=== PATIENT | female | born 1985 | race Caucasian/White ===

== ENCOUNTER 2019-05-07 02:20 | Outpatient (CLI) | payer BC, SELFPAY ==
[2019-05-07 12:36] LABS: TSH (W/Ref FT4) 0.39 uIU/mL (0.36-3.74)
== END 2019-05-07 02:40 ==
PROVIDERS: PCP Nurse Practitioner Adult Health; Visit Provider Nurse Practitioner Adult Health
DX: E03.9 Hypothyroidism, unspecified (principal)
CPT/HCPCS: 36415; 84443

== ENCOUNTER 2019-11-18 11:06 | Outpatient (REF) | payer BC, SELFPAY ==
--- NOTE | 2019-11-18 10:30 | PAPFT_PTH ---
PATIENT: Светлана Flores LOC: [facility] U#:[id number] AGE/SX: 34/F ROOM: RE11/18/[address]: CHRISTY Marquis : 1985 BED: DIS: 11/18/2019 SPEC #: [id number] RECD: 11/18/19 17:08 STATUS: KATERINE RETeodoro #: [id number] PEDRO: 11/18/19 10:[address]: Leticia Phelps [facility] Cytology RECD BY: Marie Monroy ENTERED: 11/18/19 17:08 SP TYPE: PAPFT OTHR DR: Mackenzie Clarke APRN Tissues: 1 - CX/ENDOCX FOR PAP SMEARS Procedures: PAP THIN PREP/[facility] Screening HPV DNA PROBE Comments: [id number]
[2019-11-19 13:03] LABS: GC Result Negative (Negative)
[2019-11-19 14:36] LABS: Chlamydia Result Positive (Negative)
== END 2019-11-18 11:26 ==
LOC: LBN 11:06
PROVIDERS: PCP Nurse Practitioner Adult Health; Visit Provider Nurse Practitioner Family
DX: R30.0 Dysuria (principal); Z11.3 Encounter for screening for infections with a predominantly sexual mode of transmission; Z12.4 Encounter for screening for malignant neoplasm of cervix; Z11.51 Encounter for screening for human papillomavirus (HPV); R87.615 Unsatisfactory cytologic smear of cervix
CPT/HCPCS: 87491; 87591; 88142; 87086; 87624

== ENCOUNTER 2019-12-19 02:40 | Outpatient (CLI) | payer BC, SELFPAY ==
[2019-12-20 09:50] LABS: HIV-1/2 Ag & Ab Screen Negative (Negative)
[2019-12-21 11:34] LABS: Syphilis Total Ab w/Reflex Nonreactive (Nonreactive)
== END 2019-12-19 03:00 ==
PROVIDERS: PCP Nurse Practitioner Adult Health; Visit Provider Nurse Practitioner Family
DX: Z11.3 Encounter for screening for infections with a predominantly sexual mode of transmission (principal); Z11.4 Encounter for screening for human immunodeficiency virus [HIV]
CPT/HCPCS: 36415; 87389; 86780

== ENCOUNTER 2019-12-24 18:19 | Outpatient (REF) | payer BC, SELFPAY ==
--- NOTE | 2019-12-24 15:40 | PAPFT_PTH ---
PATIENT: Светлана Flores LOC: [facility] U#:[id number] AGE/SX: 34/F ROOM: RE12/24/[address]: CHRISTY Marquis : 1985 BED: DIS: 12/24/2019 SPEC #: [id number] RECD: 12/25/19 12:14 STATUS: KATERINE RETeodoro #: [id number] PEDRO: 12/24/19 15:[address]: Leticia Phelps DEPT: [facility] Cytology RECD BY: Marie Monroy ENTERED: 12/25/19 12:14 SP TYPE: PAPFT OTHR DR: Mackenzie Clarke APRN Tissues: 1 - CX/ENDOCX FOR PAP SMEARS Procedures: PAP THIN PREP/[facility] Screening HPV DNA PROBE Comments: [id number]
[2019-12-26 15:07] LABS: Chlamydia Result Negative (Negative); GC Result Negative (Negative)
== END 2019-12-24 18:39 ==
LOC: LBN 18:19
PROVIDERS: PCP Nurse Practitioner Adult Health; Visit Provider Nurse Practitioner Family
DX: Z11.3 Encounter for screening for infections with a predominantly sexual mode of transmission (principal); Z12.4 Encounter for screening for malignant neoplasm of cervix; Z11.51 Encounter for screening for human papillomavirus (HPV); R87.612 Low grade squamous intraepithelial lesion on cytologic smear of cervix (LGSIL)
CPT/HCPCS: 87491; 87591; 88142; 87624

== ENCOUNTER 2020-01-16 11:19 | Outpatient (REF) | payer BC, SELFPAY ==
--- NOTE | 2020-01-16 10:45 | CER_PTH ---
PATIENT: Светлана Flores LOC: [facility] U#:[id number] AGE/SX: 34/F ROOM: RE01/16/[address]: Amy Boo DO : 1985 BED: DIS: 01/16/2020 SPEC #: [id number] RECD: 01/16/20 13:08 STATUS: KATERINE RE #: [id number] PEDRO: 01/16/20 10:[address]: Amy Boo DEPT: Surgical Specimen RECD BY: Marie Monroy ENTERED: 01/16/20 13:09 SP TYPE: CER JOY DR: Mackenzie Clarke APRN Tissues: 1 - CERVICAL BIOPSY 2 - ENDOCERVICAL BX/CURRETTE Procedures: GROSS AND MICRO LEVEL 4 Comments: [id number]
== END 2020-01-16 11:39 ==
LOC: LBN 11:19
PROVIDERS: PCP Nurse Practitioner Adult Health; Visit Provider Obstetrics & Gynecology
DX: N87.9 Dysplasia of cervix uteri, unspecified (principal); R87.612 Low grade squamous intraepithelial lesion on cytologic smear of cervix (LGSIL)
CPT/HCPCS: 88305

== ENCOUNTER 2020-06-10 11:58 | Outpatient (REF) | payer BC, SELFPAY ==
[2020-06-15 11:39] LABS: Chlamydia Result Positive (Negative)
[2020-06-15 11:42] LABS: GC Result Negative (Negative)
== END 2020-06-10 12:18 ==
LOC: LBN 11:58
PROVIDERS: PCP Nurse Practitioner Adult Health; Visit Provider Obstetrics & Gynecology Gynecology
DX: N93.0 Postcoital and contact bleeding (principal); Z11.3 Encounter for screening for infections with a predominantly sexual mode of transmission
CPT/HCPCS: 87491; 87591

== ENCOUNTER 2020-06-19 03:31 | Outpatient (CLI) | payer BC, SELFPAY ==
[2020-06-19 14:48] LABS: TSH (W/Ref FT4) 0.03 uIU/mL (0.36-3.74)
[2020-06-19 15:05] LABS: FREE T4 1.64 ng/dL (0.76-1.46)
== END 2020-06-19 03:51 ==
PROVIDERS: Family Medicine; PCP Nurse Practitioner Adult Health; Visit Provider Nurse Practitioner Adult Health
DX: E03.9 Hypothyroidism, unspecified (principal)
CPT/HCPCS: 36415; 84439; 84443

== ENCOUNTER 2020-12-14 12:50 | Outpatient (CLI) | payer BC, SELFPAY ==
--- NOTE | 2020-12-14 14:15 | DI.RAD_ITS ---
Exam(s) XR COCCYX EXAM: XR COCCYX CLINICAL HISTORY: Pain after a fall 1 week ago M53.3 SACROCCYGEAL DISORDER. TECHNIQUE: 2D digital imaging was performed. COMPARISON: No exams were available for comparison FINDINGS: BONES: No acute fracture is present. No bony destructive lesion is seen. JOINTS: No dislocation present. Sacroiliac joints are well maintained. SOFT TISSUE: There is an IUD in place. IMPRESSION: No acute or healing fracture or dislocation. DATA REPOSITORY: RADIATION DOSE DELIVERED:
== END 2020-12-14 13:10 ==
PROVIDERS: PCP Nurse Practitioner Adult Health; Visit Provider Family Medicine
DX: M53.3 Sacrococcygeal disorders, not elsewhere classified (principal); Z97.5 Presence of (intrauterine) contraceptive device
CPT/HCPCS: 72220

== ENCOUNTER 2021-01-08 13:34 | Outpatient (REF) | payer BC, SELFPAY ==
--- NOTE | 2021-01-08 13:10 | PAPFT_PTH ---
PATIENT: Светлана Flores LOC: [facility] U#:[id number] AGE/SX: 35/F ROOM: RE01/08/[address]: Amy Boo DO : 1985 BED: DIS: 01/08/2021 SPEC #: [id number] RECD: 01/08/21 17:58 STATUS: KATERINE REQ #: [id number] PEDRO: 01/08/21 13:[address]: Amy Boo DEPT: [facility] Cytology RECD BY: Marie Monroy ENTERED: 01/08/21 17:58 SP TYPE: PAPFT OTHR DR: Mackenzie Clarke APRN Tissues: 1 - CX/ENDOCX FOR PAP SMEARS Procedures: PAP THIN PREP/[facility] Screening HPV DNA PROBE Comments: [id number]
== END 2021-01-08 13:35 | disposition home or self-care (01) ==
LOC: LBN 13:34
PROVIDERS: PCP Nurse Practitioner Adult Health; Visit Provider Obstetrics & Gynecology
DX: Z12.4 Encounter for screening for malignant neoplasm of cervix (principal); Z87.42 Personal history of other diseases of the female genital tract; Z11.51 Encounter for screening for human papillomavirus (HPV); R87.810 Cervical high risk human papillomavirus (HPV) DNA test positive
CPT/HCPCS: 88142; 87624

== ENCOUNTER 2021-02-12 09:37 | Outpatient (REF) | payer BC, SELFPAY ==
--- NOTE | 2021-02-11 09:00 | ENDO_PTH ---
PATIENT: Светлана Flores LOC: [facility] U#:[id number] AGE/SX: 35/F ROOM: RE02/12/[address]: Amy Boo DO : 1985 BED: DIS: 02/12/2021 SPEC #: [id number] RECD: 02/12/21 12:55 STATUS: KATERINE REQ #: [id number] PEDRO: 02/11/21 09:[address]: Amy Boo DEPT: Surgical Specimen RECD BY: Marie Monroy ENTERED: 02/12/21 12:56 SP TYPE: Endo OTHR DR: Mackenzie Clarke APRN Tissues: 1 - ENDOCERVICAL BX/BRYANETTE Procedures: GROSS AND MICRO LEVEL 4 Comments: [id number]
== END 2021-02-12 09:38 | disposition home or self-care (01) ==
LOC: NCHCN 09:37
PROVIDERS: PCP Nurse Practitioner Adult Health; Visit Provider Obstetrics & Gynecology
DX: R87.810 Cervical high risk human papillomavirus (HPV) DNA test positive (principal); Z87.42 Personal history of other diseases of the female genital tract; N72 Inflammatory disease of cervix uteri
CPT/HCPCS: 88305

== ENCOUNTER 2021-03-24 11:31 | Outpatient (REF) | payer BC, SELFPAY ==
[2021-03-25 15:17] LABS: Chlamydia Result Negative (Negative); GC Result Negative (Negative)
== END 2021-03-24 11:32 | disposition home or self-care (01) ==
LOC: LBN 11:31
PROVIDERS: PCP Nurse Practitioner Adult Health; Visit Provider Advanced Practice Midwife
DX: N89.8 Other specified noninflammatory disorders of vagina (principal); R30.0 Dysuria
CPT/HCPCS: 87077; 87491; 87591; 87086; 87186; 87480; 87510; 87660

== ENCOUNTER 2021-09-08 16:34 | Outpatient (REF) | payer BC, SELFPAY | END 2021-09-08 16:35 | disposition home or self-care (01) | LOC: LBN 16:34 | PROVIDERS: PCP Nurse Practitioner Adult Health; Visit Provider Obstetrics & Gynecology | DX: R30.0 Dysuria (principal); N89.8 Other specified noninflammatory disorders of vagina | CPT/HCPCS: 87077; 87086; 87186; 87480; 87510; 87660 ==

== ENCOUNTER 2022-09-26 18:19 | Outpatient (REF) | payer BC, SELFPAY ==
--- NOTE | 2022-09-26 15:00 | PAPFT_PTH ---
PATIENT: Светлана Flores LOC: [facility] U#:[id number] AGE/SX: 37/F ROOM: RE09/26/[address]: Amy Boo DO : 1985 BED: DIS: 09/26/2022 SPEC #: [id number] RECD: 09/26/22 18:23 STATUS: KATERINE REQ #: [id number] PEDRO: 09/26/22 15:[address]: Amy Boo DEPT: [facility] Cytology RECD BY: Marie Monroy ENTERED: 09/26/22 18:23 SP TYPE: PAPFT OTHR DR: Mackenzie Clarke APRN Tissues: 1 - CX/ENDOCX FOR PAP SMEARS Procedures: PAP THIN PREP/[facility] Screening HPV DNA PROBE Comments: [id number] (HPV 16 & 18/45)
== END 2022-09-26 18:20 | disposition home or self-care (01) ==
LOC: LBN 18:19
PROVIDERS: PCP Nurse Practitioner Adult Health; Visit Provider Obstetrics & Gynecology
DX: Z12.4 Encounter for screening for malignant neoplasm of cervix (principal); Z11.51 Encounter for screening for human papillomavirus (HPV); R87.612 Low grade squamous intraepithelial lesion on cytologic smear of cervix (LGSIL); R87.810 Cervical high risk human papillomavirus (HPV) DNA test positive
CPT/HCPCS: 88142; 87624

== ENCOUNTER 2022-11-03 11:41 | Outpatient (REF) | payer BC, SELFPAY ==
--- NOTE | 2022-11-03 09:45 | ENDO_PTH ---
PATIENT: Светлана Flores LOC: [facility] U#:[id number] AGE/SX: 37/F ROOM: RE11/03/[address]: Amy Boo DO : 1985 BED: DIS: 11/03/2022 SPEC #: [id number] RECD: 11/03/22 12:30 STATUS: KATERINE RE #: [id number] PEDRO: 11/03/22 09:[address]: Amy Boo DEPT: Surgical Specimen RECD BY: Marie Monroy ENTERED: 11/03/22 12:31 SP TYPE: Endo OTHR DR: Mackenzie Clarke APRN Tissues: 1 - ENDOCERVICAL BX/CURRETTE 2 - CERVICAL BIOPSY Procedures: GROSS AND MICRO LEVEL 4 Comments: [id number]
== END 2022-11-03 11:42 | disposition home or self-care (01) ==
LOC: LBN 11:41
PROVIDERS: PCP Nurse Practitioner Adult Health; Visit Provider Obstetrics & Gynecology
DX: R87.610 Atypical squamous cells of undetermined significance on cytologic smear of cervix (ASC-US) (principal)
CPT/HCPCS: 88305

== ENCOUNTER 2023-01-12 04:45 | Outpatient (CLI) | payer BC, SELFPAY ==
[2023-01-12 15:36] LABS: Anion Gap 5.9 mmol/L (3-11); BUN 8 mg/dL (7-18); CO2 29.1 mmol/L (21.0-32.0); CREATININE 0.6 mg/dL (0.55-1.02); Calcium 8.8 mg/dL (8.5-10.1); Chloride 103 mmol/L (98-107); Estimated GFR 118.49 (mL/min/1.73m2); Glucose 103 mg/dL (74-106); Potassium 3.7 mmol/L (3.5-5.1); Sodium 138 mmol/L (136-145)
[2023-01-12 16:02] LABS: FREE T4 1.26 ng/dL (0.76-1.46)
== END 2023-01-12 04:46 | disposition home or self-care (01) ==
LOC: LBO 04:46
PROVIDERS: PCP Nurse Practitioner Adult Health; Visit Provider Nurse Practitioner Adult Health
DX: E03.9 Hypothyroidism, unspecified (principal)
CPT/HCPCS: 36415; 80048; 84439; 84443

== ENCOUNTER 2023-11-22 13:16 | Outpatient (REF) | payer BC, SELFPAY ==
--- NOTE | 2023-11-22 13:00 | PAPFT_PTH ---
PATIENT: Светлана Flores LOC: [facility] U#:[id number] AGE/SX: 38/F ROOM: RE11/22/[address]: Eli oChn NP : 1985 BED: DIS: 11/22/2023 SPEC #: [id number] RECD: 11/22/23 18:03 STATUS: KATERINE HARRELL #: [id number] PEDRO: 11/22/23 13:[address]: Eli Cohn NP DEPT: [facility] Cytology RECD BY: Marie Monroy ENTERED: 11/22/23 18:03 SP TYPE: PAPFT OTHR DR: Mackenzie Clarke APRN Tissues: 1 - CX/ENDOCX FOR PAP SMEARS Procedures: PAP THIN PREP/[facility] Screening HPV DNA PROBE Comments: [id number]
== END 2023-11-22 13:17 | disposition home or self-care (01) ==
LOC: LBN 13:16
PROVIDERS: PCP Nurse Practitioner Adult Health; Visit Provider Nurse Practitioner Women's Health
DX: Z12.4 Encounter for screening for malignant neoplasm of cervix (principal)
CPT/HCPCS: 88142; 87624

== ENCOUNTER 2023-12-29 09:31 | Outpatient (REF) | payer BC, SELFPAY ==
--- NOTE | 2023-12-29 08:50 | ENDO_PTH ---
PATIENT: Светлана Flores LOC: [facility] U#:[id number] AGE/SX: 38/F ROOM: RE12/29/[address]: Sarai Miles : 1985 BED: DIS: 12/29/2023 SPEC #: [id number] RECD: 12/29/23 12:05 STATUS: KATERINE RETeodoro #: [id number] PEDRO: 12/29/23 08:[address]: Sarai Miles DEPT: Surgical Specimen RECD BY: Marie Monroy ENTERED: 12/29/23 12:06 SP TYPE: Endo OTHR DR: Mackenzie Clarke APRN Tissues: 1 - ENDOCERVICAL BX/CURRETTE 2 - CERVICAL BIOPSY 3 - CERVICAL BIOPSY Procedures: GROSS AND MICRO LEVEL 4 Comments: [id number]
== END 2023-12-29 09:32 | disposition home or self-care (01) ==
LOC: LBN 09:31
PROVIDERS: PCP Nurse Practitioner Adult Health; Visit Provider Obstetrics & Gynecology Gynecology
DX: D06.9 Carcinoma in situ of cervix, unspecified (principal)
CPT/HCPCS: 88305

== ENCOUNTER 2024-02-08 15:28 | Outpatient (REF) | payer BC, SELFPAY | END 2024-02-08 15:29 | disposition home or self-care (01) | LOC: LBN 15:28 | PROVIDERS: PCP Nurse Practitioner Adult Health; Visit Provider Nurse Practitioner Family | DX: J02.8 Acute pharyngitis due to other specified organisms (principal); B97.89 Other viral agents as the cause of diseases classified elsewhere | CPT/HCPCS: 87070 ==

== ENCOUNTER 2024-02-23 09:18 | Outpatient (REF) | payer BC, SELFPAY ==
--- NOTE | 2024-02-23 09:00 | CER_PTH ---
PATIENT: Светлана Flores LOC: [facility] U#:[id number] AGE/SX: 38/F ROOM: RE02/23/[address]: Sarai Miles : 1985 BED: DIS: 02/23/2024 SPEC #: [id number] RECD: 02/23/24 11:36 STATUS: KATERINE RETeodoro #: [id number] PEDRO: 02/23/24 09:[address]: Sarai Miles DEPT: Surgical Specimen RECD BY: Nieves Lepe ENTERED: 02/23/24 11:39 SP TYPE: CER OTHR DR: Mackenzie Clarke APRN Tissues: 1 - CERVICAL BIOPSY 2 - CERVICAL BIOPSY 3 - CERVICAL BIOPSY 4 - CERVICAL BIOPSY Procedures: GROSS AND MICRO LEVEL 5 Comments: [id number]
== END 2024-02-23 09:19 | disposition home or self-care (01) ==
LOC: LBN 09:18
PROVIDERS: PCP Nurse Practitioner Adult Health; Visit Provider Obstetrics & Gynecology Gynecology
DX: N87.1 Moderate cervical dysplasia (principal); N72 Inflammatory disease of cervix uteri
CPT/HCPCS: 88305; 88307

== ENCOUNTER 2024-03-01 01:05 | Outpatient (CLI) | payer BC, SELFPAY ==
[2024-03-01 15:14] LABS: Anion Gap 7.8 mmol/L (3-11); BUN 9 mg/dL (7-18); CO2 31.2 mmol/L (21.0-32.0); CREATININE 0.6 mg/dL (0.55-1.02); Calcium 9.4 mg/dL (8.5-10.1); Chloride 100 mmol/L (98-107); Estimated GFR 117.75 (mL/min/1.73m2); Glucose 96 mg/dL (74-106); Potassium 3.6 mmol/L (3.5-5.1); Sodium 139 mmol/L (136-145); TSH (W/Ref FT4) 0.17 uIU/mL (0.36-3.74)
[2024-03-01 16:16] LABS: FREE T4 1.39 ng/dL (0.76-1.46)
== END 2024-03-01 01:06 | disposition home or self-care (01) ==
LOC: LBO 01:05
PROVIDERS: PCP Nurse Practitioner Adult Health; Visit Provider Nurse Practitioner Adult Health
DX: E03.9 Hypothyroidism, unspecified (principal); Z51.81 Encounter for therapeutic drug level monitoring; F41.9 Anxiety disorder, unspecified
CPT/HCPCS: 36415; 80048; 84439; 84443

== ENCOUNTER 2024-03-21 01:52 | Outpatient (CLI) | payer BC, SELFPAY ==
[2024-03-21 09:44] LABS: Absolute Basophil Count 0.03 10^3/uL (0.0-0.2); Absolute Eosinophil Count 0.05 10^3/uL (0.0-0.7); Absolute Lymphocyte Count 1.07 10^3/uL (1.2-3.4); Absolute Monocyte Count 0.28 10^3/uL (0.1-0.8); Basophils % 0.8 %; Eosinophils % 1.4 %; HGB 10.7 g/dL (11.2-15.7); Lymphocytes % 29.5 %; MCH 33.5 pg (27.0-33.0); MCHC 34.5 % (32.0-36.0); MCV 97 fL (80-95); MPV 9.5 fL (8.0-11.0); Monocytes % 7.7 %; Neutrophils % 60.6 %; Platelet Count 236 10^3/uL (130-400); RBC 3.19 10^6/uL (3.93-5.22); RDW 13.7 % (11.7-14.6); RDW-SD 49.1 fL; WBC 3.63 10^3/uL (4.4-10.8)
== END 2024-03-21 01:53 | disposition home or self-care (01) ==
PROVIDERS: PCP Nurse Practitioner Adult Health; Visit Provider Obstetrics & Gynecology
DX: Z98.890 Other specified postprocedural states (principal)
CPT/HCPCS: 36415; 85025

== ENCOUNTER 2024-07-05 11:22 | Outpatient (REF) | payer BC, SELFPAY | END 2024-07-05 11:23 | disposition home or self-care (01) | LOC: LBN 11:22 | PROVIDERS: PCP Nurse Practitioner Adult Health; Visit Provider Obstetrics & Gynecology Gynecology | DX: N76.0 Acute vaginitis (principal); B96.89 Other specified bacterial agents as the cause of diseases classified elsewhere | CPT/HCPCS: 87480; 87510; 87660 ==